=== PATIENT | female | born 1995 | race African-American/Black ===

== ENCOUNTER 2021-02-14 10:44 | Outpatient (REF) | payer MEDICAID, SELFPAY ==
[2021-02-14 13:36] LABS: SARS COV2 PCR INHOUSE NEGATIVE (Negative)
== END 2021-02-14 10:45 | disposition home or self-care (01) ==
LOC: HO.LAB 10:44
PROVIDERS: Visit Provider Internal Medicine
DX: Z20.822 Contact with and (suspected) exposure to COVID-19 (principal)
CPT/HCPCS: C9803; U0003

== ENCOUNTER 2021-03-01 08:59 | Outpatient (REF) | payer MEDICAID, SELFPAY ==
[2021-03-01 09:36] LABS: COVID-19 Test Negative (Negative)
== END 2021-03-01 09:00 | disposition home or self-care (01) ==
LOC: HO.LAB 08:59
PROVIDERS: Visit Provider Internal Medicine
DX: Z20.822 Contact with and (suspected) exposure to COVID-19 (principal)
CPT/HCPCS: 36415; 87635; C9803

== ENCOUNTER 2021-05-22 19:12 | Emergency (ER) | payer MEDICAID, SELFPAY ==
[2021-05-22 19:21] VITALS: BP 117/84; PULSE 59; RESP 15; TEMP 36.6; O2SAT 98; BMI 18.8
--- NOTE | 2021-05-22 21:09 | ED.GENADULT ---
HPI - General Adult General Chief complaint: Skin/Abscess/Foreign Body Stated complaint: see as stated complaint Time Seen by Provider: 05/22/21 21:03 Source: patient Mode of arrival: ambulatory Limitations: no limitations History of Present Illness HPI narrative: Patient comes emergency room complaining of having a tampon stuck in the vaginal canal. Patient states she has not had menstrual periods, when she woke up this morning, she reached to remove the tampon, noticed that there was no string. Patient complaining of mild discomfort, no pain, no discharge, no UTI symptoms, no fever chills. Related Data Allergies Allergy/AdvReac Type Severity Reaction Status Date / Time No Known Allergies Allergy Verified 05/22/21 19:28 [No Known Allergies*] Review of Systems Review of Systems: Constitutional : No Weight loss, No Fever, No Chills, No Night Sweats, No Fatigue, No Malaise ENT/Mouth : No Hearing loss, No Ear Pain, No Nasal Congestion, No Sinus Pain, No Hoarseness, No sore throat, No Rhinorrhea, No Swallowing Difficulty Eyes: No Eye Pain, No Swelling, No Redness, No Foreign Body, No Discharge, No Vision Changes Cardiovascular : No Chest Pain, No SOB, No Dyspnea on Exertion, No Orthopnea, No Edema, No Palpitations Respiratory : No Cough, No Sputum, No Wheezing, No Smoke Exposure, No Dyspnea Gastrointestinal : No Nausea, No Vomiting, No Diarrhea, No Constipation, No abdominal Pain, No Hematochezia, No Melena Genitourinary : Currently menstruating, No Dysuria, No Urinary Frequency, No Hematuria, No Urinary Incontinence, No Urgency, No Flank Pain, No Urinary Flow Changes, No Hesitancy, complaining of possible tampon lodged in the vaginal canal Musculoskeletal : No joint pain, No Myalgias, No Joint Swelling Skin : No Skin Lesions, No rash Neuro : No Weakness, No Numbness, No Paresthesias, No Loss of Consciousness, No Dizziness, No Headache Psych : No Anxiety/Panic, No Depression, No SI/HI/AH/VH, No Social Issues, Heme/Lymph: No Bruising, No Bleeding,No Lymphadenopathy Endocrine : No Polyuria, No Polydipsia, No Temperature Intolerance PMFSH Past Medical History Medical History No known health problems Surgical History No history of previous surgery Social History Social History Advance Directives: No Advance Directives Information Provided: No Patient : No Physical Exam Vital Signs: Vital Signs: Last Vital Signs Temp 97.8 F 05/22/21 19:21 Pulse 59 05/22/21 19:21 Resp 15 05/22/21 19:21 BP 117/84 05/22/21 19:21 Pulse Ox 98 05/22/21 19:21 Body Mass Index 18.8 Appearance: Alert. Oriented X3. No acute distress. Eyes: Pupils equal, round and reactive to light. ENT: Pharynx normal. Neck: Normal inspection. Neck supple. No lymph nodes noted. No crepitus CVS: Normal heart rate and rhythm. Pulses normal. Normal S1 and S2 Respiratory: No respiratory distress. Breath sounds normal. No Wheezing. No rales Abdomen: Soft and nontender. No rigidity. No distention. : Normal vaginal canal, normal cervix, small to moderate amount of blood in the cervix, no tampon or foreign body identified, post cervical motion tenderness Skin: Skin warm and dry. Normal skin color. Normal skin turgor. Extremities: No lower extremity edema. No Lacerations. No Rash Neuro: Oriented X 3. No motor deficit. No sensory deficit. Moving all extermities. No slurred speech. Course Course Course Narrative: I discussed the physical exam with the patient. Patient likely forgot to insert a tampon. Discharge Plan Discharge Clinical Impression: Sensation of foreign body Patient Disposition: Home, Self-Care Instructions: Normal Exam (ED) Additional Instructions: Please follow-up with your primary care physician tomorrow. If you have any worsening or new symptoms, please return to the emergency room or call [phone]
== END 2021-05-22 22:03 | disposition home or self-care (01) ==
PROVIDERS: Emergency Provider Emergency Medicine
DX: Z71.1 Person with feared health complaint in whom no diagnosis is made (principal)
CPT/HCPCS: 99283

== ENCOUNTER 2021-06-10 12:39 | Emergency (ER) | payer MEDICAID, SELFPAY ==
--- NOTE | ~2021-06-10 | XR_ITS ---
EXAMINATION: XR CHEST CLINICAL INFORMATION: Chest pain. COMPARISON: None TECHNIQUE: Frontal view of the chest was obtained. FINDINGS: No significant abnormality is noted involving the heart, lungs, mediastinum, bony thorax or soft tissues. XR/XR chest 1V IMPRESSION: Unremarkable chest examination.
[2021-06-10 13:29] VITALS: BP 109/80; PULSE 88; RESP 17; TEMP 35.4; O2SAT 100; BMI 19.2
--- NOTE | 2021-06-10 14:12 | PC.NURSE ---
Pt describing panic attacks where she is suddenly SOB with sensation of pressure on throat/neck. Sx resolve when she relaxes. It calm at this time. skin pwd. unlabored resps. ls cta.
--- NOTE | 2021-06-10 14:39 | ECG_ITS ---
Test Reason : PANIC ATTACK Blood Pressure : / mmHG Vent. Rate : 075 BPM Atrial Rate : 075 BPM P-R Int : 142 ms QRS Dur : 102 ms QT Int : 386 ms P-R-T Axes : 047 055 053 degrees QTc Int : 431 ms Normal sinus rhythm with sinus arrhythmia Incomplete right bundle branch block Borderline ECG No previous ECGs available Referred By: Edgardo Duckworth Electronically Signed By:KINA GRAVES
[2021-06-10] MEDS: LORazepam 1 MG TABLET PO (15:26)
--- NOTE | 2021-06-10 15:49 | ED.GENADULT ---
HPI - General Adult General Chief complaint: General Medical Stated complaint: anxiety sob Time Seen by Provider: 06/10/21 14:43 History of Present Illness HPI narrative: Patient complains of frequent anxiety attacks over the past several days with a feeling of her heart racing short of breath to tingling in her fingertips and similar to prior anxiety attacks, THERE IS NO CHEST PAIN BUT SHE DID FEEL SOME SHORTNESS OF BREATH AND THINK SHE WAS HYPERVENTILATING, RIGHT NOW SHE HAS NO SHORTNESS OF BREATH, no nausea no vomiting no fainting no feeling Related Data Previous Rx's Medication Instructions Recorded lorazepam 1 mg tablet (Ativan) 1 mg PO TID PRN #10 tab 06/10/21 Allergies Allergy/AdvReac Type Severity Reaction Status Date / Time No Known Allergies Allergy Verified 05/22/21 19:28 [No Known Allergies*] Review of Systems Review of Systems: Positive for anxiety, tingling in fingertips, palpitations and shortness of breath Negatives are no fever no chills no dizziness no weakness no fainting no feeling faint no headache no neck pain no abdominal pain no nausea vomiting or diarrhea no dysuria no leg swelling no calf pain or tenderness no skin rash no loss of sensation no muscleweakness Yes all other systems are reviewed and are negative PMFSH Past Medical History Source: nursing notes reviewed Medical History No known health problems Surgical History No history of previous surgery Social History Social History Advance Directives: No Advance Directives Information Provided: No Patient : No Physical Exam Vital Signs: Vital Signs: Last Vital Signs Temp 95.8 F L 06/10/21 13:29 Pulse 88 06/10/21 13:29 Resp 17 06/10/21 13:29 BP 109/80 06/10/21 13:29 Pulse Ox 100 06/10/21 13:29 Body Mass Index 19.2 General appearance is no acute distress Head is normocephalic atraumatic Pupils equal round reactive to light Extraocular motions are intact The pharynx is clear with well-hydrated mucous membranes no redness swelling or exudate voice is normal Neck is supple Chest is clear to auscultation bilateral Heart no murmur Abdomen soft nontender Extremities no calf swelling or tenderness no edema Skin no rashes Neuro A&O x3, verbal interaction both expression and comprehension are normal, gait and balance are normal, motor is 5/5 x4, no facial asymmetry, cranial nerves 2-12 intact as test Course Course Course Narrative: EKG was a normal sinus rhythm with a rate of 75 there was an incomplete right bundle branch QT was normal, VA interval was normal, no acute ischemic changes, no ST changes chest x-ray was normal Patient felt much better after an Ativan with anxiety relieved and was discharged with no evidence of myocardial ischemia, no arrhythmia, PE very unlikely and likely diagnosis is anxiety Discharge Plan Discharge Clinical Impression: Anxiety Patient Disposition: Home, Self-Care Additional Instructions: Your exam, your vital signs, your EKG and her x-ray were all normal No sign of any dangerous condition now Return to the ER any time for suicidal thoughts, hearing voices, any worse condition or any concerns Anxiety is a common problem in her many medications that will prevent it so follow with primary care doctor for further evaluation The Ativan is to be used only if needed during an anxiety attack, it is habit forming so was helpful when needed but will not prevent anxiety attacks Prescriptions: New lorazepam [Ativan] 1 mg tablet 1 mg PO TID PRN (Reason: anxiety) Qty: 10 RF: 0 Interventions: ED Discharge Assessment Last Done: 06/10/21 15:59 Discharge Date/Time: 06/10/21 16:00
== END 2021-06-10 16:00 | disposition home or self-care (01) ==
PROVIDERS: Emergency Provider Emergency Medicine
DX: F41.9 Anxiety disorder, unspecified (principal)
CPT/HCPCS: 71045; 93005; 99283

== ENCOUNTER 2022-08-15 10:02 | Outpatient (REF) | payer MEDICAID, SELFPAY | END 2022-08-15 10:03 | disposition home or self-care (01) | LOC: HO.LAB 10:02 | PROVIDERS: Visit Provider Advanced Practice Midwife | DX: Z32.01 Encounter for pregnancy test, result positive (principal) | CPT/HCPCS: 36415; 84702; 99212 ==

== ENCOUNTER 2022-08-28 10:35 | Outpatient (REF) | payer MEDICAID, SELFPAY ==
--- NOTE | ~2022-08-28 | US_ITS ---
EXAMINATION: US OBSTETRICAL ULTRASOUND CLINICAL INFORMATION: Size and dates. COMPARISON: None. LMP: Unknown. Gestational age by maternal dates is unknown. Estimated date of delivery by maternal dates is unknown. TECHNIQUE: Routine transabdominal imaging of pelvis is performed. FINDINGS: There is a single intrauterine gestational sac with visible yolk sac, embryo/fetus, and cardiac activity. There is no significant subchorionic hemorrhage or hematoma. HR: 160 beats per minute. CRL (crown rump length): 2.30 cm (9 weeks and 0 days +/- 4 days). LANDRY (estimated date of delivery): 04/02/2023 +/- 4 days. MATERNAL ADNEXA: The right maternal ovary measures 3.63 x 1.26 x 3.41 cm. The left maternal ovary is not visualized. There is no significant maternal adnexal mass. No maternal pelvic ascites. US/US OB <= 14 weeks fetus IMPRESSION: 1. Single intrauterine gestation with ultrasound gestational age of 9 weeks and 0 days +/- 4 days. 2. Estimated date of delivery is 04/02/2023 +/- 4 days. 3. No maternal adnexal mass or pelvic ascites.
== END 2022-08-28 10:36 | disposition home or self-care (01) ==
LOC: HO.HMGCX 10:35
PROVIDERS: Visit Provider Advanced Practice Midwife
DX: Z34.91 Encounter for supervision of normal pregnancy, unspecified, first trimester (principal); Z3A.09 9 weeks gestation of pregnancy
CPT/HCPCS: 76801

== ENCOUNTER 2024-08-11 09:38 | Outpatient (REF) | payer MEDICAID, SELFPAY ==
[2024-08-11 11:50] LABS: MANUAL DIFF FLAG NO
[2024-08-11 12:01] LABS: Basophils Percent Auto 0.5 % (0-2); Eosinophils Absolute Auto 0.1 X10*3/uL (0.0-0.4); Eosinophils Percent Auto 0.8 % (0-4); Hematocrit 36.5 % (37.0-47.0); Hemoglobin 11.9 g/dl (12.0-16.0); Imm Gran Abs Auto 0.02 X10*3/uL (0.00-0.03); Imm Gran Pct Auto 0.3 % (0.0-0.4); Mean Corpuscular HGB Conc 32.6 g/dl (31.0-35.0); Mean Corpuscular Hemoglobin 25.7 pg (27.0-33.0); Mean Corpuscular Volume 78.8 fL (80.0-98.0); Mean Platelet Volume 9.8 fL (9.4-12.3); Monocytes Absolute Auto 0.7 X10*3/uL (0.1-1.2); Neutrophils Absolute Auto 2.7 x10*3/uL (2.0-8.3); Neutrophils Percent Auto 41.4 % (45-73); Platelet Count 256 X10*3/uL (160-400); Red Blood Count 4.63 X10*6/uL (4.20-5.50); Red Cell Distribution Width 17.2 % (11.0-16.0); White Blood Count 6.4 X10*3/uL (4.8-10.8)
== END 2024-08-11 09:39 | disposition home or self-care (01) ==
LOC: HO.HHCL 09:38
PROVIDERS: Visit Provider General Practice
DX: D64.9 Anemia, unspecified (principal)
CPT/HCPCS: 36415; 85025